=== PATIENT | female | born 1965 | race Caucasian/White ===

== ENCOUNTER 2016-04-08 08:06 | Emergency (ER) | payer BC ==
[2016-04-08 08:15] VITALS: BP 129/99
--- NOTE | 2016-04-08 08:24 | EDM.PDOC ---
<Brittney Kahn - Last Filed: 04/08/16 09:57> ED HPI RENAL/ - General Chief Complaint: Genitourinary Problem Stated Complaint: [id number] UTI Time Seen by Provider: 04/08/16 08:16 Source of Information: Reports: Patient History Limitations: Reports: No limitations - History of Present Illness INITIAL COMMENTS - FREE TEXT/NARRATIVE: Patient presents to the ER with c/o frequency, urgency, dysuria for 3 days. She states this has been a recurrent problem and she has been seen many times for the problem. Patient admits to fever and chills at times, although is afebrile at this time. Denies N/V/D. She denies any recent illnesses. 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) ("Left over antibiotics from last time") - Related Data Allergies/ADRs: Allergies Allergy/AdvReac Type Severity Reaction Status Date / Time morphine Allergy Nausea and Verified 04/08/16 08:10 Vomiting Home Meds: Home Meds Multivitamin [Multivitamins] 1 cap PO DAILY 03/24/14 [History] Past Medical History Cardiovascular History: Reports: Hypertension Other Genitourinary History: dysuria Other OB/BYN History: menopause - Past Surgical History Other GI Surgeries/Procedures: spleenectomy Social & Family History - Tobacco Use Smoking Status *Q: Never Smoker Second Hand Smoke Exposure: No - Alcohol Use Days Per Week of Alcohol Use: 0 - Recreational Drug Use Recreational Drug Use: No ED ROS GENERAL - Review of Systems Review Of Systems: ROS reveals no pertinent complaints other than HPI. ED EXAM, RENAL/ - Physical Exam Exam: See Below Exam Limited By: No limitations General Appearance: alert, WD/WN, no apparent distress Eye Exam: bilateral eye: normal inspection Ears: normal external exam, normal canal, hearing grossly normal, normal TMs Nose: normal inspection, normal mucosa, no blood Throat/Mouth: Normal inspection, Normal lips, Normal teeth, Normal gums, Normal oropharynx, Normal voice, No airway compromise Neck: normal inspection, supple, non-tender, full range of motion Respiratory/Chest: no respiratory distress, lungs clear, normal breath sounds, no accessory muscle use, chest non-tender Cardiovascular: normal peripheral pulses, regular rate, rhythm, no edema, no gallop, no JVD, no murmur, no rub GI/Abdominal: normal bowel sounds, soft, non tender, no organomegaly, no distention, no abnormal bruit, no mass (Female) Exam: Deferred Rectal (Female) Exam: Deferred Back Exam: normal inspection, full range of motion, NT Extremities: normal inspection, normal range of motion, non-tender, normal capillary refill, no pedal edema Neurological: alert, oriented, CN II-XII intact, normal cognition, normal gait, normal reflexes, no motor/sensory deficits Psychiatric: normal affect, normal mood Skin Exam: Warm, Dry, Intact, Normal color, No rash Lymphatic: no adenopathy Course - Vital Signs Last Recorded V/S: Last Vital Signs Temp 36.3 C 04/08/16 08:11 Pulse 74 04/08/16 08:11 Resp 16 04/08/16 08:11 BP 129/99 H 04/08/16 08:11 Pulse Ox 100 04/08/16 08:11 - Orders/Labs/Meds Orders: Active Orders 24 hr Category Date Time Status CULTURE URINE [RM] Stat Lab 04/08/16 08:39 Uncollected Labs: Laboratory Tests 04/08/16 Range/Units 08:20 Urine Color Yellow (YELLOW) Urine Appearance Cloudy (CLEAR) Urine pH 7.0 (5.0-9.0) Ur Specific Page 1.025 (1.005-1.030) Urine Protein 30 H (NEGATIVE) Urine Glucose (UA) Negative (NEGATIVE) Urine Ketones Negative (NEGATIVE) Urine Occult Blood Small H (NEGATIVE) Urine Nitrite Positive H (NEGATIVE) Urine Bilirubin Negative (NEGATIVE) Urine Urobilinogen 1.0 (0.2-1.0) mg/dL Ur Leukocyte Esterase Large H (NEGATIVE) Urine RBC 0-5 /HPF Urine WBC Packed H (0-5/HPF) /HPF Ur Epithelial Cells Few /HPF Urine Bacteria Many H (0-FEW/HPF) /HPF Departure - Departure Disposition: Home, Self-Care 01 Condition: good Clinical Impression: UTI (urinary tract infection) Qualifiers: Urinary tract infection type: acute cystitis Hematuria presence: with hematuria Qualified Code(s): N30.01 - Acute cystitis with hematuria Instructions: Pyelonephritis, Adult, [id number] Forms: ED Department Discharge Additional Instructions: Rx: Cipro 500mg Drink plenty of fluids. Complete antibiotics as directed. Return to the clinic in 10 days when antibiotics are completed for a follow up urinalysis. <Cullen Kaiser - Last Filed: 04/08/16 12:08> Course - Re-Assessments/Exams Free Text/Narrative Re-Assessment/Exam: 04/08/16 08:41 FOR THIS ENCOUNTER THE PATIENT WAS SEEN IN CONJUNCTION WITH [facility] STUDENT BRITTNEY KAHN. ALL PATIENT CARE AND/OR PROCEDURE(S), DIAGNOSTIC ORDERS, MEDICATION(S) AND TREATMENT ORDERS, DISPOSITION ORDERS/PLANNING, AND DISCHARGE/FOLLOW UP INSTRUCTIONS WERE UNDER MY DIRECT SUPERVISION. gbd Departure - Departure Time of Disposition: 08:41
== END 2016-04-08 08:54 | disposition home or self-care (01) ==
LOC: DL.ED 08:06
DX: N30.01 Acute cystitis with hematuria (principal); I10 Essential (primary) hypertension; Z88.5 Allergy status to narcotic agent
CPT/HCPCS: 81001; 99283

== ENCOUNTER 2016-08-02 19:24 | Emergency (ER) | payer OTHER, BC ==
[2016-08-02 19:43] VITALS: BP 116/82
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
[2016-08-02] MEDS ORDERED: Ondansetron 4 MG Tab.DIS ONE (21:21)
[2016-08-02] MEDS ORDERED: traMADol 50 MG Tab ONE (21:21)
[2016-08-02] MEDS ORDERED: Ondansetron 4 MG Tab.DIS PO ONE (21:21)
[2016-08-02] MEDS ORDERED: LORazepam 1 MG Tab PO ONE (21:21)
[2016-08-02] MEDS ORDERED: traMADol 50 MG Tab PO ONE (21:21)
[2016-08-02] MEDS ORDERED: LORazepam 1 MG Tab ONE (21:21)
== END 2016-08-02 21:28 | disposition home or self-care (01) ==
LOC: DL.ED 19:24
DX: S06.0X9A Concussion with loss of consciousness of unspecified duration, initial encounter (principal); S16.1XXA Strain of muscle, fascia and tendon at neck level, initial encounter; H54.7 Unspecified visual loss; I10 Essential (primary) hypertension; Z87.448 Personal history of other diseases of urinary system; Z88.5 Allergy status to narcotic agent; V89.2XXA Person injured in unspecified motor-vehicle accident, traffic, initial encounter
CPT/HCPCS: 70450; 72125; 99284; A9270-GY